=== PATIENT | male | born 2000 | race Caucasian/White ===

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

== ENCOUNTER 2020-03-04 18:25 | Emergency (ER) | payer OTHER, SELFPAY ==
[~2020-03-04] VITALS: Ht 182.9 cm; Wt 86.6 kg
[~2020-03-04 18:25] MED LIST: FERROUS SULFAT325 M2 PO
[2020-03-04 18:40] VITALS: Ht 182.9 cm; Wt 86.6 kg
[2020-03-04 21:01] LABS: BASOPHIL % 0.2 % (0-2); PLATELET COUNT 140 x10^3mcL (130-400); RED CELL DISTRIBUTION WIDTH 14.6 % (11.5-14.5)
[2020-03-04 21:36] LABS: CALCIUM 8.6 mg/dL (8.5-10.1); CARBON DIOXIDE 19.3 mmol/L (21-32); CHLORIDE SERUM 109 mmol/L (98-107); CREATININE SERUM 1.1 mg/dL (0.7-1.3); GFR1 > 60 mL/min; GLUCOSE SERUM 88 mg/dL (74-106); POTASSIUM SERUM 3.3 mmol/L (3.5-5.1); SODIUM SERUM 142 mmol/L (136-145)
[2020-03-04 21:41] LABS: ALBUMIN 4.2 g/dL (3.4-5.0); ALKALINE PHOSPHATASE 94 U/L (46-116); ALT/SGPT 52 U/L (16-63); AST/SGOT 31 U/L (15-37); BILIRUBIN TOTAL 0.71 mg/dL (0.20-1.00); TOTAL PROTEIN, SERUM 6.8 g/dL (6.4-8.2)
[2020-03-04 21:50] LABS: AMPHETAMINE QUAL UR NONE DETECTED (See below)
[2020-03-04 23:12] VITALS: BP 139/60
== END 2020-03-04 23:12 | disposition home or self-care (01) ==
LOC: ED 18:25
PROVIDERS: Emergency Medicine
DX: M54.5 Low back pain (principal); Z86.2 Personal history of diseases of the blood and blood-forming organs and certain disorders involving the immune mechanism
CPT/HCPCS: 87804; J1885; J2270; J2405; J7030; Q0092